=== PATIENT | female | born 1980 | race Caucasian/White ===

== ENCOUNTER 2018-03-29 17:47 | Emergency (ER) | payer OTHER ==
[2018-03-29 21:37] LABS: ADD MAN DIFF? NO
[2018-03-29 21:40] LABS: ABNORMAL IP MESSAGE 1; BASOPHILS % 0.5 % (0.0-2.0); EOSINOPHILS # 0.1 10^3/ul (0.0-0.5); EOSINOPHILS % 2.4 % (0.0-7.0); HEMATOCRIT 26.5 % (37.0-47.0); HEMOGLOBIN 7.1 g/dl (12.0-16.0); LYMPHOCYTES # 2.2 10^3/ul (0.8-2.9); LYMPHOCYTES % 37.5 % (15.0-51.0); MEAN CORPUSCULAR HEMOGLOBIN 18.7 pg (29.0-33.0); MEAN CORPUSCULAR HGB CONC 26.8 g/dl (32.0-37.0); MEAN CORPUSCULAR VOLUME 69.9 fl (82.0-101.0); MEAN PLATELET VOLUME 9.5 fl (7.4-10.4); MONOCYTE # 0.3 10^3/ul (0.3-0.9); MONOCYTES % 5.4 % (0.0-11.0); NEUTROPHIL # 3.1 10^3/ul (1.6-7.5); PLATELET COUNT 301 10^3/UL (140-415); RED BLOOD COUNT 3.79 10^6/ul (4.20-5.40); RED CELL DISTRIBUTION WIDTH 22.7 % (11.5-14.5)
[2018-03-29 21:40] LABS: WHITE BLOOD COUNT 5.8 10^3/ul (4.8-10.8)
[2018-03-29 21:48] LABS: POSITIVE DIFF @See below
[2018-03-29 22:06] LABS: ANION GAP 17 (8-16); BLOOD UREA NITROGEN 12 mg/dl (7-20); CALCIUM 9.1 mg/dl (8.4-10.2); CARBON DIOXIDE 24 mmol/L (21-31); CHLORIDE 104 mmol/L (97-110); CREATININE 0.79 mg/dl (0.44-1.00); GLUCOSE 90 mg/dl (70-220); POTASSIUM 3.7 mmol/L (3.5-5.1); SODIUM 141 mmol/L (135-144)
[2018-03-29 22:21] LABS: TROPONIN-I < 0.010 ng/ml (0.000-0.120)
[2018-03-29] MEDS: LIDOCAINE/MYLANTA 40 ML BTL PO (22:59)
[2018-03-29] MEDS: SOD CHLORIDE 0.9% 1,000 ML IV (22:59)
[2018-03-29] MEDS: ONDANSETRON 4 MG INJ IV (23:00)
[2018-03-29 23:19] LABS: ALANINE AMINOTRANSFERASE 24 IU/L (13-69); ALBUMIN 4.1 g/dl (3.3-4.9); ALKALINE PHOSPHATASE 60 IU/L (42-121); ASPARTATE AMINO TRANSFERASE 26 IU/L (15-46); BILIRUBIN,INDIRECT 0.2 mg/dl (0-1.1); BILIRUBIN,TOTAL 0.2 mg/dl (0.2-1.3); LIPASE 399 U/L (23-300); TOTAL PROTEIN 7.5 g/dl (6.1-8.1)
[2018-03-30] LABS: URINE BLOOD (Dip) POC Negative (NEGATIVE); URINE GLUCOSE (Dip) POC Negative (NEGATIVE); URINE KETONES (Dip) POC Negative (NEGATIVE); URINE LEUKOCYTE EST (Dip) POC Negative (NEGATIVE); URINE NITRITE (Dip) POC Negative (NEGATIVE); URINE TOTAL PROTEIN POC Negative (NEGATIVE)
== END 2018-03-30 00:55 | disposition home or self-care (01) ==
LOC: E/R 03-30 00:55
DX: D50.9 Iron deficiency anemia, unspecified (principal); R10.13 Epigastric pain
CPT/HCPCS: 36415; 71045; 80048; 80076; 81003; 81025; 83690; 84484; 85025; 93005; 96374; 99285-25

== ENCOUNTER 2018-12-20 19:03 | Inpatient (IN) | payer OTHER ==
[2018-12-20] MEDS ORDERED: ACETAMINOPHEN 325 MG TAB PO (21:00)
[2018-12-20] MEDS ORDERED: AL HYDROX/MG HYDROX/SIMETH 30 ML CUP PO (21:00)
[2018-12-20] MEDS: SOD CHLORIDE 0.9% 1,000 ML IV (21:25)
[2018-12-20] MEDS: LACTATED RINGER'S 1,000 ML IV (21:25)
[2018-12-20 23:22] LABS: WHITE BLOOD COUNT 9.1 10^3/ul (4.8-10.8)
[2018-12-20 23:22] LABS: ABNORMAL IP MESSAGE 1; HEMATOCRIT 20.6 % (37.0-47.0); MEAN CORPUSCULAR HEMOGLOBIN 18.1 pg (29.0-33.0); MEAN CORPUSCULAR HGB CONC 27.2 g/dl (32.0-37.0); MEAN CORPUSCULAR VOLUME 66.7 fl (82.0-101.0); NUCLEATED RED BLOOD CELLS% 1.9 /100WBC (0.0-0.0); PLATELET COUNT 249 10^3/UL (140-415); RED BLOOD COUNT 3.09 10^6/ul (4.20-5.40); RED CELL DISTRIBUTION WIDTH 21.3 % (11.5-14.5)
[2018-12-20 23:23] LABS: PLATELET COUNT 237 10^3/UL (140-415)
[2018-12-20 23:23] LABS: POSITIVE DIFF @See below
[2018-12-20 23:25] LABS: ADD MAN DIFF? YES; HEMOGLOBIN 5.6 g/dl (12.0-16.0)
[2018-12-20 23:42] LABS: INR 0.98; PROTIME 13.1 Sec (11.9-14.9)
[2018-12-20 23:43] LABS: ALANINE AMINOTRANSFERASE 19 IU/L (13-69); ALBUMIN 3.4 g/dl (3.3-4.9); ALKALINE PHOSPHATASE 99 IU/L (42-121); ANION GAP 7 (5-13); ASPARTATE AMINO TRANSFERASE 24 IU/L (15-46); BILIRUBIN,INDIRECT 0.3 mg/dl (0-1.1); BILIRUBIN,TOTAL 0.3 mg/dl (0.2-1.3); BLOOD UREA NITROGEN 10 mg/dl (7-20); CALCIUM 9.1 mg/dl (8.4-10.2); CARBON DIOXIDE 24 mmol/L (21-31); CHLORIDE 104 mmol/L (97-110); CREATININE 0.52 mg/dl (0.44-1.00); Estimated GFR > 60 mL/min (>60); GLUCOSE 88 mg/dl (70-220); PARTIAL THROMBOPLASTIN TIME 31.1 Sec (23.0-35.0); POTASSIUM 3.7 mmol/L (3.5-5.1); SODIUM 135 mmol/L (135-144); THROMBIN TIME 14.4 SEC (13.8-19.1); TOTAL PROTEIN 6.8 g/dl (6.1-8.1)
[2018-12-20 23:53] LABS: ANISOCYTOSIS 3+ (0-0); BAND NEUTROPHILS #M 0.2 10^3/ul (0.0-0.6); BAND NEUTROPHILS % (M) 3 % (0-4); EOSINOPHILS % (M) 1 % (0-7); ERYTHROBLAST% (NRBC) (M) 2 % (0-0); GIANT THROMBO% (M) 7 % (0-0); HYPOCHROMASIA 1+ (0-0); LYMPHOCYTES #M 0.9 10^3/ul (0.8-2.9); LYMPHOCYTES % (M) 10 % (15-51); MICROCYTOSIS 3+ (0-0); MONOCYTE #M 0.2 10^3/ul (0.3-0.9); MONOCYTES % (M) 3 % (0-11); PLATELET ESTIMATE NORMAL; POLYCHROMASIA 1+ (0-0); SEG NEUT #M 7.5 10^3/ul (1.6-7.5); SEGMENTED NEUTROPHILS (M) % 82 % (39-77); SMUDGE%M 16 % (0-0)
[2018-12-21 03:37] LABS: ADD UMIC NO; UR ASCORBIC ACID NEGATIVE (NEGATIVE); UR BILIRUBIN (Dip) NEGATIVE (NEGATIVE); UR BLOOD (Dip) NEGATIVE (NEGATIVE); UR CLARITY CLEAR (CLEAR); UR COLOR YELLOW (YELLOW); UR GLUCOSE (Dip) NEGATIVE (NEGATIVE); UR KETONES (Dip) NEGATIVE (NEGATIVE); UR LEUKOCYTE ESTERASE (Dip) NEGATIVE Leu/ul (NEGATIVE); UR NITRITE (Dip) NEGATIVE (NEGATIVE); UR TOTAL PROTEIN (Dip) NEGATIVE (NEGATIVE); UR UROBILINOGEN (Dip) NEGATIVE (NEGATIVE)
[2018-12-21 04:34] LABS: IMMEDIATE SPIN CROSSMATCH 1
[2018-12-21] MEDS: SOD CHLORIDE 0.9% 1,000 ML IV ×2 (05:55→10:00)
[2018-12-21 09:44] LABS: IMMEDIATE SPIN CROSSMATCH 1 4
[2018-12-21] MEDS: PRENATAL VITAMIN PO (09:59)
[2018-12-21] MEDS: FERROUS SULFATE (EC) 325 MG TAB PO (09:59)
[2018-12-21 12:21] LABS: ADD MAN DIFF? NO
[2018-12-21 12:26] LABS: WHITE BLOOD COUNT 7.6 10^3/ul (4.8-10.8)
[2018-12-21 12:26] LABS: ABNORMAL IP MESSAGE 1; BASOPHILS % 0.4 % (0.0-2.0); EOSINOPHILS # 0.1 10^3/ul (0.0-0.5); EOSINOPHILS % 1.6 % (0.0-7.0); HEMATOCRIT 25.8 % (37.0-47.0); HEMOGLOBIN 7.4 g/dl (12.0-16.0); LYMPHOCYTES # 1.3 10^3/ul (0.8-2.9); LYMPHOCYTES % 17.5 % (15.0-51.0); MEAN CORPUSCULAR HEMOGLOBIN 20.7 pg (29.0-33.0); MEAN CORPUSCULAR HGB CONC 28.7 g/dl (32.0-37.0); MEAN CORPUSCULAR VOLUME 72.3 fl (82.0-101.0); MEAN PLATELET VOLUME 9.7 fl (7.4-10.4); MONOCYTE # 0.5 10^3/ul (0.3-0.9); NEUTROPHIL # 5.5 10^3/ul (1.6-7.5); NEUTROPHILS % 71.7 % (39.0-77.0); NUCLEATED RED BLOOD CELLS # 0.2 10^3/ul (0.0-0.0); PLATELET COUNT 209 10^3/UL (140-415); RED BLOOD COUNT 3.57 10^6/ul (4.20-5.40); RED CELL DISTRIBUTION WIDTH 23.5 % (11.5-14.5)
[2018-12-21 12:28] LABS: POSITIVE DIFF @See below
[2018-12-21] MEDS: SOD FERRIC GLUC COMPLX 125 MG in SOD CHLORIDE 0.9% 100 ML IVPB (12:36)
[2018-12-21 12:41] LABS: IRON 26 ug/dl (35-150)
[2018-12-21 12:50] LABS: % IRON SATURATION 5 % SAT (22-52); TOTAL IRON BINDING CAPACITY 482 ug/dl (241-421)
[2018-12-21 13:17] LABS: FERRITIN 6.2 ng/ml (6.2-137.0)
[2018-12-21 13:55] LABS: FOLATE > 20.0 ng/ml (2.8-20.0)
[2018-12-21] MEDS: FOLIC ACID 1 MG TAB PO (14:41)
[2018-12-21] MEDS: SERTRALINE 50 MG TAB PO (22:27)
[2018-12-22] MEDS: FERROUS SULFATE (EC) 325 MG TAB PO (07:59)
[2018-12-22] MEDS: PRENATAL VITAMIN PO (07:59)
[2018-12-22] MEDS: DOCUSATE SODIUM 100 MG CAP PO (08:00)
[2018-12-22] MEDS: FOLIC ACID 1 MG TAB PO (08:00)
[2018-12-22] MEDS ORDERED: FOLIC ACID 1 MG TAB PO (09:00)
[2018-12-22 11:34] LABS: ADD MAN DIFF? NO
[2018-12-22 11:35] LABS: ABNORMAL IP MESSAGE 1; BASOPHILS % 0.3 % (0.0-2.0); EOSINOPHILS # 0.2 10^3/ul (0.0-0.5); EOSINOPHILS % 1.9 % (0.0-7.0); HEMOGLOBIN 9.7 g/dl (12.0-16.0); LYMPHOCYTES # 1.7 10^3/ul (0.8-2.9); MEAN CORPUSCULAR HEMOGLOBIN 21.7 pg (29.0-33.0); MEAN CORPUSCULAR HGB CONC 29.4 g/dl (32.0-37.0); MEAN CORPUSCULAR VOLUME 73.7 fl (82.0-101.0); MEAN PLATELET VOLUME 10.2 fl (7.4-10.4); MONOCYTE # 0.6 10^3/ul (0.3-0.9); MONOCYTES % 5.4 % (0.0-11.0); NEUTROPHIL # 7.3 10^3/ul (1.6-7.5); NEUTROPHILS % 71.3 % (39.0-77.0); NUCLEATED RED BLOOD CELLS # 0.3 10^3/ul (0.0-0.0); NUCLEATED RED BLOOD CELLS% 2.8 /100WBC (0.0-0.0); PLATELET COUNT 237 10^3/UL (140-415); RED BLOOD COUNT 4.48 10^6/ul (4.20-5.40); RED CELL DISTRIBUTION WIDTH 24.3 % (11.5-14.5)
[2018-12-22 11:35] LABS: WHITE BLOOD COUNT 10.2 10^3/ul (4.8-10.8)
[2018-12-22 11:38] LABS: POSITIVE DIFF @See below
[2018-12-22] MEDS: LACTATED RINGER'S 1,000 ML IV ×4 (13:16→20:45)
[2018-12-22] MEDS: SOD FERRIC GLUC COMPLX 125 MG in SOD CHLORIDE 0.9% 100 ML IVPB (13:17)
[2018-12-22] MEDS: CYANOCOBALAMIN 1000 MCG INJ IM (13:18)
[2018-12-22 14:17] LABS: HAPTOGLOBIN 108 mg/dL (43-212)
[2018-12-22] MEDS: SERTRALINE 50 MG TAB PO (21:15)
[2018-12-23] MEDS: LACTATED RINGER'S 1,000 ML IV (04:45)
[2018-12-23 06:17] LABS: ABNORMAL IP MESSAGE 1; HEMATOCRIT 31.2 % (37.0-47.0); MEAN CORPUSCULAR HEMOGLOBIN 21.6 pg (29.0-33.0); MEAN CORPUSCULAR HGB CONC 28.8 g/dl (32.0-37.0); MEAN CORPUSCULAR VOLUME 74.8 fl (82.0-101.0); MEAN PLATELET VOLUME 10.5 fl (7.4-10.4); NUCLEATED RED BLOOD CELLS% 2.2 /100WBC (0.0-0.0); PLATELET COUNT 262 10^3/UL (140-415); RED BLOOD COUNT 4.17 10^6/ul (4.20-5.40); RED CELL DISTRIBUTION WIDTH 24.8 % (11.5-14.5); RETICULOCYTE COUNT # 0.141 X10^6 (0.020-0.110); RETICULOCYTE COUNT % 3.4 % (0.5-1.5); RETICULOCYTE RBC 4.17
[2018-12-23 06:17] LABS: WHITE BLOOD COUNT 10.3 10^3/ul (4.8-10.8)
[2018-12-23 06:20] LABS: ADD MAN DIFF? YES; POSITIVE DIFF @See below
[2018-12-23] MEDS: PRENATAL VITAMIN PO (08:45)
[2018-12-23] MEDS: FOLIC ACID 1 MG TAB PO (08:47)
[2018-12-23] MEDS: FERROUS SULFATE (EC) 325 MG TAB PO (09:00)
[2018-12-23 09:07] LABS: ANISOCYTOSIS 3+ (0-0); BAND NEUTROPHILS #M 0.6 10^3/ul (0.0-0.6); BAND NEUTROPHILS % (M) 6 % (0-4); BASOPHIL #M 0.1 10^3/ul (0.0-0.0); BASOPHILS % (M) 1 % (0-2); EOSINOPHILS % (M) 4 % (0-7); ERYTHROBLAST% (NRBC) (M) 5 % (0-0); GIANT THROMBO% (M) 2 % (0-0); LYMPHOCYTES #M 2.2 10^3/ul (0.8-2.9); LYMPHOCYTES % (M) 22 % (15-51); MICROCYTOSIS 3+ (0-0); MONOCYTE #M 0.5 10^3/ul (0.3-0.9); MONOCYTES % (M) 5 % (0-11); MYELOCYTES #M 0.1 10^3/ul (0.0-0.0); MYELOCYTES % (M) 1 % (0-0); PLATELET ESTIMATE NORMAL; POIKILOCYTOSIS 1+ (0-0); POLYCHROMASIA 3+ (0-0); REACTIVE LYMPHOCYTES #M 0.4 10^3/ul (0.0-0.0); REACTIVE LYMPHOCYTES% (M) 4 % (0-0); SEG NEUT #M 5.9 10^3/ul (1.6-7.5); SEGMENTED NEUTROPHILS (M) % 57 % (39-77); SMUDGE%M 17 % (0-0)
[2018-12-23] MEDS: SOD FERRIC GLUC COMPLX 125 MG in SOD CHLORIDE 0.9% 100 ML IVPB (12:51)
[2018-12-23] MEDS: SOD CHLORIDE 0.9% 1,000 ML IV (20:09)
[2018-12-23] MEDS: SERTRALINE 50 MG TAB PO (20:48)
[2018-12-24] MEDS ORDERED: SOD CHLORIDE 0.9% 100 ML IV ×2 (07:30→13:00)
[2018-12-24 08:31] LABS: ADD MAN DIFF? NO
[2018-12-24 08:37] LABS: ABNORMAL IP MESSAGE 1; HEMATOCRIT 33.1 % (37.0-47.0); HEMOGLOBIN 9.7 g/dl (12.0-16.0); MEAN CORPUSCULAR HEMOGLOBIN 22.2 pg (29.0-33.0); MEAN CORPUSCULAR HGB CONC 29.3 g/dl (32.0-37.0); MEAN CORPUSCULAR VOLUME 75.9 fl (82.0-101.0); MEAN PLATELET VOLUME 10.4 fl (7.4-10.4); PLATELET COUNT 239 10^3/UL (140-415); RED BLOOD COUNT 4.36 10^6/ul (4.20-5.40); RED CELL DISTRIBUTION WIDTH 26.5 % (11.5-14.5)
[2018-12-24 08:37] LABS: WHITE BLOOD COUNT 12.3 10^3/ul (4.8-10.8)
[2018-12-24 08:38] LABS: POSITIVE DIFF @See below
[2018-12-24 08:53] LABS: ALANINE AMINOTRANSFERASE 12 IU/L (13-69); ALBUMIN 3.7 g/dl (3.3-4.9); ALKALINE PHOSPHATASE 125 IU/L (42-121); ANION GAP 10 (5-13); ASPARTATE AMINO TRANSFERASE 27 IU/L (15-46); BILIRUBIN,INDIRECT 0.4 mg/dl (0-1.1); BILIRUBIN,TOTAL 0.4 mg/dl (0.2-1.3); BLOOD UREA NITROGEN 10 mg/dl (7-20); CALCIUM 9.6 mg/dl (8.4-10.2); CARBON DIOXIDE 24 mmol/L (21-31); CHLORIDE 105 mmol/L (97-110); CREATININE 0.54 mg/dl (0.44-1.00); Estimated GFR > 60 mL/min (>60); GLUCOSE 91 mg/dl (70-220); POTASSIUM 4.1 mmol/L (3.5-5.1); SODIUM 139 mmol/L (135-144); TOTAL PROTEIN 7.4 g/dl (6.1-8.1)
[2018-12-24] MEDS: DOCUSATE SODIUM 100 MG CAP PO (08:53)
[2018-12-24] MEDS: FERROUS SULFATE (EC) 325 MG TAB PO (08:53)
[2018-12-24] MEDS: PRENATAL VITAMIN PO (08:53)
[2018-12-24] MEDS: FOLIC ACID 1 MG TAB PO (08:53)
[2018-12-24] MEDS: SOD FERRIC GLUC COMPLX 125 MG in SOD CHLORIDE 0.9% 100 ML IVPB (12:49)
[2018-12-24 17:01] LABS: HOMOCYSTEINE - CARDIOVASCULAR 15.2 umol/L (<10.4)
[2018-12-25 20:57] LABS: INTRINSIC FACTOR AB NEGATIVE
== END 2018-12-24 20:00 | disposition home or self-care (01) | DRG 831 ==
LOC: OBT 19:03 → L-D 12-21 16:52 → OBT 20:30 → L-D 20:30
PROC: 30233K1 Transfusion of Nonautologous Frozen Plasma into Peripheral Vein, Percutaneous Approach (ICD-10-PCS; principal; 2018-12-21)
PROC: 30233N1 Transfusion of Nonautologous Red Blood Cells into Peripheral Vein, Percutaneous Approach (ICD-10-PCS; 2018-12-21)
DX: O99.013 Anemia complicating pregnancy, third trimester (principal); O45.93 Premature separation of placenta, unspecified, third trimester; O44.03 Complete placenta previa NOS or without hemorrhage, third trimester; D50.9 Iron deficiency anemia, unspecified; D64.9 Anemia, unspecified; E53.8 Deficiency of other specified B group vitamins; O09.33 Supervision of pregnancy with insufficient antenatal care, third trimester; O09.523 Supervision of elderly multigravida, third trimester; Z3A.29 29 weeks gestation of pregnancy
CPT/HCPCS: 36430; 76815; 76818; 80053; 81003; 82607; 82728; 82746; 83010; 83090; 83540; 83921; 85025; 85045; 85049; 85610; 85670; 85730; 86340; 86850; 86900; 86901; 86920

== ENCOUNTER → 2019-01-26 | Outpatient (CLI) | payer OTHER ==
[~2019-01-26] MED LIST: BETAMET NA PHOS/AC(6 MG/ML) 2 ML INJ SYG IM; DOCUSATE SODIUM 100 MG CAP PO; NACL 0.9% 3 ML SYG IV; PRENATAL VITAMIN PO
[2019-01-26 15:32] LABS: RUPTURE FETAL MEMBRANES NEGATIVE (NEGATIVE)
[2019-01-26 15:57] LABS: ADD MAN DIFF? NO
[2019-01-26 16:00] LABS: ABNORMAL IP MESSAGE 1; HEMATOCRIT 36.7 % (37.0-47.0); HEMOGLOBIN 11.3 g/dl (12.0-16.0); MEAN CORPUSCULAR HGB CONC 30.8 g/dl (32.0-37.0); MEAN CORPUSCULAR VOLUME 84.4 fl (82.0-101.0); MEAN PLATELET VOLUME 10.7 fl (7.4-10.4); PLATELET COUNT 172 10^3/UL (140-415); RED BLOOD COUNT 4.35 10^6/ul (4.20-5.40); RED CELL DISTRIBUTION WIDTH 23.1 % (11.5-14.5)
[2019-01-26 16:00] LABS: WHITE BLOOD COUNT 7.1 10^3/ul (4.8-10.8)
[2019-01-26 16:18] LABS: IRON 28 ug/dl (35-150)
[2019-01-26 16:20] LABS: ALANINE AMINOTRANSFERASE 17 IU/L (13-69); ALBUMIN 3.6 g/dl (3.3-4.9); ALKALINE PHOSPHATASE 125 IU/L (42-121); ANION GAP 8 (5-13); ASPARTATE AMINO TRANSFERASE 32 IU/L (15-46); BILIRUBIN,INDIRECT 0.3 mg/dl (0-1.1); BILIRUBIN,TOTAL 0.3 mg/dl (0.2-1.3); BLOOD UREA NITROGEN 7 mg/dl (7-20); CARBON DIOXIDE 22 mmol/L (21-31); CHLORIDE 109 mmol/L (97-110); CREATININE 0.51 mg/dl (0.44-1.00); Estimated GFR > 60 mL/min (>60); GLUCOSE 83 mg/dl (70-220); INR 0.94; PARTIAL THROMBOPLASTIN TIME 30.9 Sec (23.0-35.0); POTASSIUM 3.9 mmol/L (3.5-5.1); PROTIME 12.7 Sec (11.9-14.9); SODIUM 139 mmol/L (135-144); TOTAL PROTEIN 7.2 g/dl (6.1-8.1)
[2019-01-26 16:28] LABS: % IRON SATURATION 5 % SAT (22-52); TOTAL IRON BINDING CAPACITY 568 ug/dl (241-421)
[2019-01-26 16:36] LABS: POSITIVE DIFF @See below
[2019-01-26 17:23] LABS: ANISOCYTOSIS 3+ (0-0); BAND NEUTROPHILS #M 0.3 10^3/ul (0.0-0.6); BAND NEUTROPHILS % (M) 5 % (0-4); EOSINOPHILS % (M) 2 % (0-7); LYMPHOCYTES #M 0.9 10^3/ul (0.8-2.9); LYMPHOCYTES % (M) 14 % (15-51); MICROCYTOSIS 2+ (0-0); MYELOCYTES % (M) 1 % (0-0); PLATELET ESTIMATE DECREASED; POLYCHROMASIA 3+ (0-0); SEG NEUT #M 5.6 10^3/ul (1.6-7.5); SEGMENTED NEUTROPHILS (M) % 78 % (39-77); SMUDGE%M 12 % (0-0)
[2019-01-26 19:33] LABS: RAPID PLASMA REAGIN NONREACTIVE (NR)
[2019-01-31 13:41] LABS: CHENODEOXYCHOLIC ACID 0.6 umol/L (< OR = 3.1); CHOLIC ACID 0.6 umol/L (< OR = 1.8); DEOXYCHOLIC ACID <0.5 umol/L (< OR = 2.4); TOTAL BILE ACIDS <1.5 umol/L (< OR = 6.8)
== END | disposition home or self-care (01) ==
LOC: OBT 14:02 → L-D 14:02 → OBT 15:11 → L-D 15:11 → OBT 18:45 → L-D 18:45
DX: O47.03 False labor before 37 completed weeks of gestation, third trimester (principal); O44.03 Complete placenta previa NOS or without hemorrhage, third trimester; O09.523 Supervision of elderly multigravida, third trimester; O26.853 Spotting complicating pregnancy, third trimester; O26.893 Other specified pregnancy related conditions, third trimester; R10.30 Lower abdominal pain, unspecified; Z3A.35 35 weeks gestation of pregnancy
CPT/HCPCS: 76815; 76817; 76818; 80053; 83540; 83789; 84112; 85025; 85610; 85730; 86592; 86850; 86900; 86901

== ENCOUNTER 2019-02-01 09:15 | Outpatient (CLI) | payer OTHER ==
[2019-02-01] MEDS: LACTATED RINGER'S 1,000 ML IV (12:01)
== END 2019-02-01 15:55 | disposition home or self-care (01) ==
LOC: OBT 09:15 → L-D 09:15 → OBT 15:55
DX: O47.03 False labor before 37 completed weeks of gestation, third trimester (principal); O41.03X0 Oligohydramnios, third trimester, not applicable or unspecified; O44.03 Complete placenta previa NOS or without hemorrhage, third trimester; O09.523 Supervision of elderly multigravida, third trimester; Z3A.35 35 weeks gestation of pregnancy
CPT/HCPCS: 36415; 76815; 76818; 96360; 96361

== ENCOUNTER 2019-02-04 08:41 | Outpatient (CLI) | payer OTHER ==
[2019-02-04 11:09] LABS: RUPTURE FETAL MEMBRANES NEGATIVE (NEGATIVE)
== END 2019-02-04 11:19 | disposition home or self-care (01) ==
LOC: OBT 08:41 → L-D 08:41 → OBT 11:19
DX: O41.93X0 Disorder of amniotic fluid and membranes, unspecified, third trimester, not applicable or unspecified (principal); Z3A.36 36 weeks gestation of pregnancy
CPT/HCPCS: 76818; 84112

== ENCOUNTER 2019-02-11 09:55 | Outpatient (CLI) | payer OTHER ==
[2019-02-11 12:35] LABS: RUPTURE FETAL MEMBRANES NEGATIVE (NEGATIVE)
== END 2019-02-11 12:53 | disposition home or self-care (01) ==
LOC: OBT 09:55 → L-D 09:55 → OBT 12:53
DX: O36.8330 Maternal care for abnormalities of the fetal heart rate or rhythm, third trimester, not applicable or unspecified (principal); O41.93X0 Disorder of amniotic fluid and membranes, unspecified, third trimester, not applicable or unspecified; O44.03 Complete placenta previa NOS or without hemorrhage, third trimester; O09.523 Supervision of elderly multigravida, third trimester; Z3A.37 37 weeks gestation of pregnancy
CPT/HCPCS: 76815; 76818; 84112

== ENCOUNTER 2019-02-18 07:22 | Inpatient (IN) | payer OTHER ==
[2019-02-18] MEDS ORDERED: CARBOPROST 250 MCG INJ IM ×2 (09:30→16:00)
[2019-02-18] MEDS ORDERED: OXYTOCIN 30 UNITS/LR 500 ML IV ×2 (09:30→16:00)
[2019-02-18] MEDS ORDERED: METHYLERGONOVINE 0.2 MG INJ IM ×2 (09:30→16:00)
[2019-02-18] MEDS ORDERED: MISOPROSTOL 200 MCG TAB PR ×2 (09:30→16:00)
[2019-02-18] MEDS: LACTATED RINGER'S 1,000 ML IV ×3 (10:02→19:00)
[2019-02-18 10:14] LABS: ADD MAN DIFF? NO
[2019-02-18 10:20] LABS: WHITE BLOOD COUNT 6.8 10^3/ul (4.8-10.8)
[2019-02-18 10:20] LABS: ABNORMAL IP MESSAGE 1; BASOPHILS % 0.4 % (0.0-2.0); EOSINOPHILS # 0.1 10^3/ul (0.0-0.5); EOSINOPHILS % 2.1 % (0.0-7.0); HEMATOCRIT 36.8 % (37.0-47.0); HEMOGLOBIN 11.5 g/dl (12.0-16.0); LYMPHOCYTES # 1.4 10^3/ul (0.8-2.9); MEAN CORPUSCULAR HEMOGLOBIN 26.6 pg (29.0-33.0); MEAN CORPUSCULAR HGB CONC 31.3 g/dl (32.0-37.0); MEAN PLATELET VOLUME 11.6 fl (7.4-10.4); MONOCYTE # 0.4 10^3/ul (0.3-0.9); MONOCYTES % 5.1 % (0.0-11.0); NEUTROPHIL # 4.9 10^3/ul (1.6-7.5); PLATELET COUNT 163 10^3/UL (140-415); POSITIVE DIFF @See below; RED BLOOD COUNT 4.33 10^6/ul (4.20-5.40); RED CELL DISTRIBUTION WIDTH 17.9 % (11.5-14.5)
[2019-02-18 10:40] LABS: INR 0.96; PROTIME 12.9 Sec (11.9-14.9)
[2019-02-18 10:41] LABS: PARTIAL THROMBOPLASTIN TIME 33.1 Sec (23.0-35.0)
[2019-02-18] MEDS ORDERED: DEXAMETHASONE 4 MG/ML 1 ML INJ (14:58)
[2019-02-18] MEDS ORDERED: ONDANSETRON 4 MG INJ (14:58)
[2019-02-18] MEDS ORDERED: morphine SULFATE/PF (10 MG/10 ML) INJ (15:07)
[2019-02-18] MEDS ORDERED: PHENYLephrine (100 MCG/ML) 10ML SYG (15:09)
[2019-02-18] MEDS ORDERED: KETOROLAC 30 MG INJ IV (15:30)
[2019-02-18] MEDS ORDERED: ZOLPIDEM 5 MG TAB PO (15:30)
[2019-02-18] MEDS ORDERED: HYDROmorphONE 0.5 MG/0.5 ML SYG IV ×2 (15:30)
[2019-02-18] MEDS ORDERED: NALOXONE (0.4 MG/ML) INJ IV (15:30)
[2019-02-18] MEDS ORDERED: ONDANSETRON 4 MG INJ IV (15:30)
[2019-02-18] MEDS ORDERED: DIPHENHYDRAMINE 50 MG INJ IV (15:30)
[2019-02-18] MEDS ORDERED: HYDROCODONE/APAP (5/325) TAB PO (16:00)
[2019-02-18] MEDS ORDERED: METHYLERGONOVINE 0.2 MG TAB PO (16:00)
[2019-02-18] MEDS ORDERED: LANOLIN HPA 1 PKT TOP (16:00)
[2019-02-18] MEDS: OXYTOCIN 30 UNITS/LR 500 ML IV ×2 (16:08→18:36)
[2019-02-18] MEDS: CLINDAMYCIN 900 MG/D5W (PMX) 50 ML IVPB (16:38)
[2019-02-18 17:04] LABS: RAPID PLASMA REAGIN NONREACTIVE (NR)
[2019-02-18] MEDS: SENNA/DOCUSATE NA (8.6MG/50MG) TAB PO (21:35)
[2019-02-19] MEDS: LACTATED RINGER'S 1,000 ML IV ×2 (01:29→09:41)
[2019-02-19 07:40] LABS: ADD MAN DIFF? NO
[2019-02-19 07:51] LABS: WHITE BLOOD COUNT 11.1 10^3/ul (4.8-10.8)
[2019-02-19 07:51] LABS: ABNORMAL IP MESSAGE 1; BASOPHILS % 0.2 % (0.0-2.0); EOSINOPHILS % 0.3 % (0.0-7.0); HEMATOCRIT 29.4 % (37.0-47.0); HEMOGLOBIN 9.2 g/dl (12.0-16.0); LYMPHOCYTES # 1.7 10^3/ul (0.8-2.9); LYMPHOCYTES % 15.6 % (15.0-51.0); MEAN CORPUSCULAR HEMOGLOBIN 26.4 pg (29.0-33.0); MEAN CORPUSCULAR HGB CONC 31.3 g/dl (32.0-37.0); MEAN CORPUSCULAR VOLUME 84.2 fl (82.0-101.0); MEAN PLATELET VOLUME 11.4 fl (7.4-10.4); MONOCYTE # 0.7 10^3/ul (0.3-0.9); MONOCYTES % 6.2 % (0.0-11.0); NEUTROPHIL # 8.6 10^3/ul (1.6-7.5); NEUTROPHILS % 77.3 % (39.0-77.0); PLATELET COUNT 149 10^3/UL (140-415); RED BLOOD COUNT 3.49 10^6/ul (4.20-5.40); RED CELL DISTRIBUTION WIDTH 17.7 % (11.5-14.5)
[2019-02-19 07:52] LABS: POSITIVE DIFF @See below
[2019-02-19 08:05] LABS: ANION GAP 5 (5-13); BLOOD UREA NITROGEN 7 mg/dl (7-20); CARBON DIOXIDE 27 mmol/L (21-31); CHLORIDE 104 mmol/L (97-110); CREATININE 0.62 mg/dl (0.44-1.00); Estimated GFR > 60 mL/min (>60); GLUCOSE 72 mg/dl (70-220); POTASSIUM 4.2 mmol/L (3.5-5.1); SODIUM 136 mmol/L (135-144)
[2019-02-19] MEDS: SENNA/DOCUSATE NA (8.6MG/50MG) TAB PO ×2 (09:40→21:29)
[2019-02-19] MEDS: IBUPROFEN 800 MG TAB PO (18:11)
[2019-02-19] MEDS: SERTRALINE 50 MG TAB PO (21:29)
[2019-02-20] MEDS: IBUPROFEN 800 MG TAB PO ×3 (00:24→18:08)
[2019-02-20] MEDS: HYDROCODONE/APAP (5/325) TAB PO (00:24)
[2019-02-20] MEDS: SENNA/DOCUSATE NA (8.6MG/50MG) TAB PO ×2 (08:40→21:00)
[2019-02-20] MEDS: SERTRALINE 50 MG TAB PO (21:00)
[2019-02-21] MEDS: IBUPROFEN 800 MG TAB PO ×2 (03:05→10:40)
[2019-02-21] MEDS: HYDROCODONE/APAP (5/325) TAB PO (03:05)
[2019-02-21 08:19] LABS: ADD MAN DIFF? NO
[2019-02-21 08:22] LABS: WHITE BLOOD COUNT 8.6 10^3/ul (4.8-10.8)
[2019-02-21 08:22] LABS: BASOPHIL # 0.1 10^3/ul (0.0-0.1); BASOPHILS % 0.6 % (0.0-2.0); EOSINOPHILS # 0.3 10^3/ul (0.0-0.5); EOSINOPHILS % 2.9 % (0.0-7.0); HEMATOCRIT 31.7 % (37.0-47.0); HEMOGLOBIN 9.7 g/dl (12.0-16.0); LYMPHOCYTES # 1.9 10^3/ul (0.8-2.9); LYMPHOCYTES % 22.4 % (15.0-51.0); MEAN CORPUSCULAR HEMOGLOBIN 26.7 pg (29.0-33.0); MEAN CORPUSCULAR HGB CONC 30.6 g/dl (32.0-37.0); MEAN CORPUSCULAR VOLUME 87.3 fl (82.0-101.0); MEAN PLATELET VOLUME 11.7 fl (7.4-10.4); MONOCYTE # 0.5 10^3/ul (0.3-0.9); NEUTROPHIL # 5.8 10^3/ul (1.6-7.5); NEUTROPHILS % 67.6 % (39.0-77.0); PLATELET COUNT 190 10^3/UL (140-415); RED BLOOD COUNT 3.63 10^6/ul (4.20-5.40); RED CELL DISTRIBUTION WIDTH 17.2 % (11.5-14.5)
[2019-02-21] MEDS: DIPHTH/TET/ACEL PERTUSS (ADULT) 0.5 ML VIAL IM* (09:00)
[2019-02-21] MEDS: SENNA/DOCUSATE NA (8.6MG/50MG) TAB PO (09:00)
[2019-02-21] MEDS: MEASLES,MUMPS,RUBELLA VACCINE INJ SC* (09:00)
[2019-02-21 15:39] LABS: HEPATITIS B SURFACE ANTIGEN NEGATIVE (NEGATIVE)
[2019-02-21] MEDS ORDERED: LABETALOL 200 MG TAB PO (21:00)
== END 2019-02-21 18:25 | disposition home or self-care (01) | DRG 785 ==
LOC: OBT 07:22 → L-D 07:22 → OBT 09:00 → L-D 09:33 → PP1 20:30
PROVIDERS: Obstetrics & Gynecology
PROC: 10D00Z1 Extraction of Products of Conception, Low, Open Approach (ICD-10-PCS; principal; 2019-02-18)
PROC: 0UB70ZZ Excision of Bilateral Fallopian Tubes, Open Approach (ICD-10-PCS; 2019-02-18)
DX: O44.03 Complete placenta previa NOS or without hemorrhage, third trimester (principal); O69.1XX0 Labor and delivery complicated by cord around neck, with compression, not applicable or unspecified; O69.2XX0 Labor and delivery complicated by other cord entanglement, with compression, not applicable or unspecified; O99.02 Anemia complicating childbirth; D50.9 Iron deficiency anemia, unspecified; Z3A.38 38 weeks gestation of pregnancy; Z37.0 Single live birth; Z30.2 Encounter for sterilization
CPT/HCPCS: 76818; 80048; 85025; 85610; 85730; 86592; 86850; 86900; 86901; 86920; 87340; 88302